=== PATIENT | female | born 1975 | race Two or more races ===

== ENCOUNTER 2018-03-25 19:07 | Emergency (ER) | payer MEDICAID ==
[~2018-03-25] VITALS: Ht 165.1 cm; Wt 54.4 kg
[2018-03-25 19:22] VITALS: BP 102/56
== END 2018-03-25 19:41 | disposition left against medical advice (07) ==
LOC: ER 19:10
DX: R07.89 Other chest pain (principal); Z53.21 Procedure and treatment not carried out due to patient leaving prior to being seen by health care provider
CPT/HCPCS: 93005

== ENCOUNTER 2018-10-18 17:39 | Emergency (ER) | payer MEDICAID ==
[~2018-10-18] VITALS: Ht 165.1 cm; Wt 68.0 kg
[2018-10-19 03:30] VITALS: BP 96/66
[2018-10-19 03:53] LABS: Basophils # (auto) 0 uL; Basophils % (auto) 0.7 % (0.0-2.0); Eosinophils # (auto) 0.1 uL; Eosinophils % (auto) 1.1 % (0.0-7.0); Hematocrit 35.7 % (36.0-46.0); Hemoglobin 12.2 g/dL (12.2-16.2); Lymphocytes # (auto) 2.1 uL; Lymphocytes % (auto) 36.5 % (10.0-50.0); Mean Corpuscular Hemoglobin 32.7 pg (28.0-32.0); Mean Corpuscular Hgb Conc. 34.2 g/dL (32.0-36.0); Mean Corpuscular Volume 95.6 fL (80.0-100.0); Monocytes # (auto) 0.4 uL; Monocytes % (auto) 7.8 % (0.0-12.0); Neutrophils % (auto) 53.9 % (37.0-80.0); Nucleated Red Blood Cells % 0.1 %; Platelet Count (auto) 328 10^3/uL (140-450); Red Blood Cells 3.74 10^6/uL (4.0-5.20); Red Cell Distribution Width 12.8 % (11.8-14.3); White Blood Cell 5.7 10^3/uL (4.4-10.8)
[2018-10-19 04:14] LABS: Alanine Aminotransferase 16 U/L (13-56); Albumin 3.3 g/dL (3.4-5.0); Anion Gap 9 (5-15); Aspartate Aminotransferase 8 U/L (15-37); BUN/Creatinine Ratio 14.8; Blood Urea Nitrogen 9 mg/dL (7-18); Carbon Dioxide 25 mmol/L (21-32); Chloride 110 mmol/L (98-107); GFR African American 138 mL/min; GFR Non-African American 114 mL/min; Glucose 81 mg/dL (74-106); Potassium 3.5 mmol/L (3.5-5.1); Sodium 144 mmol/L (136-145)
[2018-10-19 04:18] LABS: Alkaline Phosphatase 57 U/L (45-117); Bilirubin, Total 0.4 mg/dL (0.2-1.0); Total Protein 6.8 g/dL (6.4-8.2)
[2018-10-19 04:40] LABS: Urine Bacteria FEW /hpf (None Seen); Urine Blood 3+ /uL (Negative); Urine Mucus FEW (None Seen); Urine Specific Gravity 1.008 (1.001-1.035); Urine WBC 2 /hpf (0 - 5)
== END 2018-10-19 05:10 | disposition home or self-care (01) ==
LOC: ER 17:39
DX: F41.8 Other specified anxiety disorders (principal)
CPT/HCPCS: 36415; 80053; 81001; 81025; 84484; 85025

== ENCOUNTER 2023-07-01 03:12 | Emergency (ER) | payer MEDICAID ==
[~2023-07-01] VITALS: Ht 162.6 cm; Wt 66.2 kg
[2023-07-01 03:13] VITALS: BP 106/62; PULSE 69; RESP 18; O2SAT 98
[2023-07-01] MEDS ORDERED: BENZ100C97 PO (06:38)
[2023-07-01] MEDS ORDERED: AZIT-43 PO (06:38)
[2023-07-01] MEDS ORDERED: PRED20TA2 PO (06:38)
[2023-07-01] MEDS ORDERED: ALBUAER3 IN (06:38)
== END 2023-07-01 06:47 | disposition home or self-care (01) ==
LOC: ER 03:12
DX: J20.9 Acute bronchitis, unspecified (principal)
CPT/HCPCS: 71045